=== PATIENT | female | born 1960 | race Asian ===

== ENCOUNTER 2017-09-03 12:11 | Emergency (ER) | payer OTHER ==
[~2017-09-03] VITALS: Ht 175.3 cm; Wt 74.8 kg
[2017-09-03 12:27] VITALS: TEMP 98.2
[2017-09-03 13:03] LABS: PLATELET COUNT 399 K/uL (152-353)
[2017-09-03 13:10] LABS: SODIUM 138 mmol/L (136-145)
[2017-09-03 13:57] VITALS: BP 141/87
== END 2017-09-03 14:04 | disposition home or self-care (01) ==
LOC: ED 12:11
PROVIDERS: Family Medicine
DX: R06.2 Wheezing (principal); R09.89 Other specified symptoms and signs involving the circulatory and respiratory systems
CPT/HCPCS: 36415; 80053; 85027; 94664; 99283

== ENCOUNTER 2019-03-18 13:21 | Outpatient (CLI) | payer OTHER ==
[2019-03-18 13:45] LABS: PLATELET COUNT 434 K/uL (152-353)
[2019-03-18 14:02] LABS: POTASSIUM 3.9 mmol/L (3.6-5.2)
== END 2019-03-18 22:34 | disposition home or self-care (01) ==
LOC: LABW 13:21
PROVIDERS: Nurse Practitioner Family
DX: L40.59 Other psoriatic arthropathy (principal); L40.8 Other psoriasis; Z68.25 Body mass index [BMI] 25.0-25.9, adult; Z79.899 Other long term (current) drug therapy
CPT/HCPCS: 36415; 80053; 85027; 85651; 86140

== ENCOUNTER 2019-07-11 13:02 | Outpatient (CLI) | payer OTHER | END 2019-07-11 19:13 | disposition home or self-care (01) | LOC: MAMMO 13:02 | DX: Z12.31 Encounter for screening mammogram for malignant neoplasm of breast (principal) ==

== ENCOUNTER 2019-11-13 13:48 | Emergency (ER) | payer OTHER ==
[~2019-11-13] VITALS: Ht 175.3 cm; Wt 77.6 kg
[2019-11-13 14:00] VITALS: BP 130/81; TEMP 98.1
== END 2019-11-13 14:57 | disposition home or self-care (01) ==
LOC: ED 13:48
DX: L40.8 Other psoriasis (principal)
CPT/HCPCS: 96372; 99282; J2930

== ENCOUNTER 2020-08-17 13:01 | Outpatient (CLI) | payer OTHER | END 2020-08-17 18:51 | disposition home or self-care (01) | LOC: MAMMO 13:01 | PROVIDERS: ATTEND Nurse Practitioner Family | DX: Z12.31 Encounter for screening mammogram for malignant neoplasm of breast (principal) ==

== ENCOUNTER 2021-08-30 13:10 | Outpatient (CLI) | payer OTHER | END 2021-08-30 19:15 | disposition home or self-care (01) | LOC: MAMMO 13:10 | PROVIDERS: ATTEND Nurse Practitioner Family | DX: Z12.31 Encounter for screening mammogram for malignant neoplasm of breast (principal) ==

== ENCOUNTER 2021-09-27 09:27 | Outpatient (CLI) | payer OTHER | END 2021-09-27 19:27 | disposition home or self-care (01) | LOC: RAD 09:27 | PROVIDERS: ATTEND Nurse Practitioner Family | DX: M79.672 Pain in left foot (principal) ==

== ENCOUNTER 2021-12-15 15:24 | Outpatient (CLI) | payer OTHER | END 2021-12-15 19:14 | disposition home or self-care (01) | LOC: RAD 15:24 | PROVIDERS: ATTEND Nurse Practitioner Family | DX: Z13.820 Encounter for screening for osteoporosis (principal); N95.8 Other specified menopausal and perimenopausal disorders ==

== ENCOUNTER 2022-10-31 11:49 | Outpatient (CLI) | payer OTHER | END 2022-10-31 20:39 | disposition home or self-care (01) | LOC: MAMMO 11:49 | PROVIDERS: ATTEND Nurse Practitioner Family | DX: Z12.31 Encounter for screening mammogram for malignant neoplasm of breast (principal) ==

== ENCOUNTER 2023-04-27 10:49 | Outpatient (CLI) | payer OTHER | END 2023-04-27 20:44 | disposition home or self-care (01) | LOC: RAD 10:49 | PROVIDERS: ATTEND Nurse Practitioner Family | DX: R05.1 Acute cough (principal); J44.1 Chronic obstructive pulmonary disease with (acute) exacerbation ==